=== PATIENT | female | born 1965 | race Caucasian/White ===

== ENCOUNTER 2021-04-11 14:14 | Emergency (ER) | payer MEDICAID ==
[~2021-04-11] VITALS: Ht 152.4 cm; Wt 72.6 kg
[2021-04-11 14:15] VITALS: BP_SYST 159
[2021-04-11 15:54] LABS: BASOPHILS % (AUTO) 0.6 % (0.0-2.0); EOSINOPHILS # (AUTO) 0.1 K/uL (0.0-0.4); EOSINOPHILS % (AUTO) 1.1 % (0.0-4.0); HEMATOCRIT 39.2 % (36-48); HEMOGLOBIN 12.9 g/dL (12.0-16.0); LYMPHOCYTES # (AUTO) 2.7 K/uL (1.0-5.5); LYMPHOCYTES % (AUTO) 33.3 % (20.5-51.5); MEAN CORPUSCULAR HEMOGLOBIN 28 pg (27-31); MEAN CORPUSCULAR HGB CONC 33 % (32-36); MEAN CORPUSCULAR VOLUME 85 fL (79.0-98.0); MONOCYTES # (AUTO) 0.4 K/uL (0.0-1.0); MONOCYTES % (AUTO) 5.3 % (1.7-9.3); NEUTROPHILS # (AUTO) 4.8 K/uL (1.8-7.7); NEUTROPHILS % (AUTO) 59.7 % (40.0-70.0); PLATELET COUNT (AUTO) 283 K/uL (130-430); RED BLOOD CELL COUNT(AUTO) 4.63 MIL/uL (4.2-6.2); RED CELL DISTRIBUTION WIDTH 13.4 % (9.0-15.0)
[2021-04-11 16:28] LABS: CALCIUM 9.6 mg/dL (8.4-11.0); CREATININE 1.3 mg/dL (0.55-1.30); POTASSIUM 4.5 mmol/L (3.5-5.1)
[2021-04-11 16:37] LABS: ALBUMIN 3.3 g/dL (3.4-4.8)
[2021-04-11 16:50] LABS: TOTAL BILIRUBIN 0.1 mg/dL (0.0-1.0)
[2021-04-11 16:51] LABS: INR 0.9 (0.8-1.2); PROTHROMBIN TIME 9.2 SECS (9.5-12.5)
[2021-04-11] MEDS ORDERED: NACL 0.9% 2,000 ML IV ONE (17:15)
== END 2021-04-11 20:18 | disposition left against medical advice (07) ==
LOC: SED 14:14
DX: G45.9 Transient cerebral ischemic attack, unspecified (principal); E11.65 Type 2 diabetes mellitus with hyperglycemia; Z79.899 Other long term (current) drug therapy
CPT/HCPCS: 36415; 70450; 71045; 76376; 80053; 84484; 85025; 85610; 85730; 93005; 96360; 99285; J7030

== ENCOUNTER 2023-01-12 16:26 | Inpatient (IN) | payer MEDICAID ==
[~2023-01-12] VITALS: Ht 157.5 cm; Wt 68.9 kg
[2023-01-12 16:43] VITALS: BP_SYST 164; PULSE 101; RESP 16; TEMP 98.4; O2SAT 99
[2023-01-12] MEDS ORDERED: LISI-652 PO (16:56)
[2023-01-12] MEDS ORDERED: METO50TA7 PO (16:56)
[2023-01-12] MEDS ORDERED: DONE10TA4 PO (16:56)
[2023-01-12] MEDS ORDERED: AMLO5TAB92 PO (16:56)
[2023-01-12] MEDS ORDERED: AMIN30LI31 PO (16:56)
[2023-01-12] MEDS ORDERED: ACET325C6 PO (16:56)
[2023-01-12] MEDS ORDERED: MULT15TA3 PO (16:56)
[2023-01-12] MEDS ORDERED: ASCO500C18 PO (16:56)
[2023-01-12] MEDS ORDERED: ASPI-524 PO (16:56)
[2023-01-12] MEDS ORDERED: DOCU-156 PO (16:56)
[2023-01-12] MEDS ORDERED: LACT1CAP14 PO (16:56)
[2023-01-12] MEDS ORDERED: INSU100V11 SQ (16:56)
[2023-01-12] MEDS ORDERED: TRAM50TA2 PO (16:56)
[2023-01-12] MEDS ORDERED: SULF1TAB48 PO (16:56)
[2023-01-12] MEDS ORDERED: POLY17PO44 PO (16:56)
[2023-01-12] MEDS ORDERED: INSU100V46 SQ (16:56)
[2023-01-12] MEDS ORDERED: DIPHTH,PERTUSS(ACELL),TET VAC 0.5 ML VIAL (Tdap) I.M. ONE (19:15)
[2023-01-12] MEDS ORDERED: cefTRIAXone 1 GM IVPB PREMIX 50 ML IV ONE (19:15)
[2023-01-12 20:08] LABS: BASOPHILS # (AUTO) 0.1 K/uL (0.0-0.2); BASOPHILS % (AUTO) 0.6 % (0.0-2.0); EOSINOPHILS # (AUTO) 0.1 K/uL (0.0-0.4); HEMOGLOBIN 10.5 g/dL (12.0-16.0); LYMPHOCYTES # (AUTO) 3.7 K/uL (1.0-5.5); LYMPHOCYTES % (AUTO) 27.1 % (20.5-51.5); MEAN CORPUSCULAR HEMOGLOBIN 28 pg (27-31); MEAN CORPUSCULAR HGB CONC 32 % (32-36); MEAN CORPUSCULAR VOLUME 87 fL (79.0-98.0); MONOCYTES % (AUTO) 7.6 % (1.7-9.3); NEUTROPHILS # (AUTO) 8.8 K/uL (1.8-7.7); NEUTROPHILS % (AUTO) 63.7 % (40.0-70.0); PLATELET COUNT (AUTO) 419 K/uL (130-430); RED BLOOD CELL COUNT(AUTO) 3.81 MIL/uL (4.2-6.2); RED CELL DISTRIBUTION WIDTH 15.2 % (9.0-15.0); WHITE BLOOD COUNT (AUTO) 13.8 K/uL (4.8-10.8)
[2023-01-12 20:21] LABS: CALCIUM 8.8 mg/dL (8.4-11.0); CREATININE 0.91 mg/dL (0.55-1.30); POTASSIUM 4.3 mmol/L (3.5-5.1)
[2023-01-12 20:26] LABS: INR 0.9 (0.8-1.2); PROTHROMBIN TIME 9.1 SECS (9.5-12.5)
[2023-01-13] MEDS ORDERED: cefTRIAXone 1 GM VIAL ONE (01:35)
[2023-01-13] MEDS ORDERED: NACL 0.9% 1,000 ML IV ONE (02:00)
[2023-01-13] MEDS ORDERED: VANCOMYCIN HCL 1,000 MG in NS 250 ML IV ONE (02:00)
[2023-01-13] MEDS ORDERED: PIPERACILLIN/TAZO 3.375 GM in NS 50 ML IV ONE ×2 (05:00→09:00)
[2023-01-13 06:12] LABS: BASOPHILS # (AUTO) 0.1 K/uL (0.0-0.2); BASOPHILS % (AUTO) 0.9 % (0.0-2.0); EOSINOPHILS # (AUTO) 0.1 K/uL (0.0-0.4); EOSINOPHILS % (AUTO) 0.9 % (0.0-4.0); HEMATOCRIT 30.7 % (36-48); HEMOGLOBIN 9.9 g/dL (12.0-16.0); LYMPHOCYTES # (AUTO) 3.3 K/uL (1.0-5.5); LYMPHOCYTES % (AUTO) 29.1 % (20.5-51.5); MEAN CORPUSCULAR HEMOGLOBIN 28 pg (27-31); MEAN CORPUSCULAR HGB CONC 32 % (32-36); MEAN CORPUSCULAR VOLUME 86 fL (79.0-98.0); MONOCYTES # (AUTO) 0.9 K/uL (0.0-1.0); NEUTROPHILS % (AUTO) 61.1 % (40.0-70.0); PLATELET COUNT (AUTO) 420 K/uL (130-430); RED BLOOD CELL COUNT(AUTO) 3.57 MIL/uL (4.2-6.2); RED CELL DISTRIBUTION WIDTH 14.8 % (9.0-15.0); WHITE BLOOD COUNT (AUTO) 11.4 K/uL (4.8-10.8)
[2023-01-13 06:19] LABS: CALCIUM 9.1 mg/dL (8.4-11.0); CREATININE 0.77 mg/dL (0.55-1.30); POTASSIUM 4.7 mmol/L (3.5-5.1)
[2023-01-13 06:24] LABS: ALBUMIN 2.3 g/dL (3.4-4.8); TOTAL BILIRUBIN 0.2 mg/dL (0.0-1.0); TOTAL PROTEIN, SERUM 6.4 g/dL (6.4-8.3)
[2023-01-13] MEDS ORDERED: VANCOMYCIN HCL 1000 MG/VIAL IV ONE (08:00)
[2023-01-13 09:00] VITALS: BP_SYST 149; PULSE 97; RESP 18; TEMP 97.5
[2023-01-13 10:31] VITALS: BP_SYST 149; PULSE 97; RESP 18; TEMP 97.5
[2023-01-13] MEDS ORDERED: traMADol HCL HCL 50 MG TABLET (ULTRAM) PO PRN (11:30)
[2023-01-13] MEDS ORDERED: POLYETHYLENE GLYCOL 3350, 17 GM/ POWD.PACK PO PRN (11:30)
[2023-01-13 12:00] VITALS: BP_SYST 150; PULSE 96; RESP 17; TEMP 97; O2SAT 97
[2023-01-13 16:00] VITALS: BP_SYST 151; PULSE 95; RESP 16; TEMP 97.3; O2SAT 97
[2023-01-13] MEDS: INSULIN REGULAR, HUMAN 100 UNITS/ML, 3 ML VIAL (humuLIN R) SUBCUT PRN (17:03)
[2023-01-13 20:00] VITALS: BP_SYST 146; PULSE 98; RESP 18; TEMP 88.9; O2SAT 96
[2023-01-13] MEDS: INSULIN GLARGINE 100 UNITS/ML, 10 ML VIAL SQ SCH (21:40)
[2023-01-14 00:04] VITALS: BP_SYST 144; PULSE 70; RESP 18; TEMP 98.5; O2SAT 98
[2023-01-14] MEDS: INSULIN REGULAR, HUMAN 100 UNITS/ML, 3 ML VIAL (humuLIN R) SUBCUT PRN ×3 (06:12→18:01)
[2023-01-14 06:50] LABS: BASOPHILS % (AUTO) 0.3 % (0.0-2.0); EOSINOPHILS # (AUTO) 0.2 K/uL (0.0-0.4); EOSINOPHILS % (AUTO) 1.6 % (0.0-4.0); HEMATOCRIT 31.4 % (36-48); LYMPHOCYTES # (AUTO) 3.9 K/uL (1.0-5.5); LYMPHOCYTES % (AUTO) 35.2 % (20.5-51.5); MEAN CORPUSCULAR HEMOGLOBIN 27 pg (27-31); MEAN CORPUSCULAR HGB CONC 32 % (32-36); MEAN CORPUSCULAR VOLUME 86 fL (79.0-98.0); MONOCYTES # (AUTO) 0.9 K/uL (0.0-1.0); MONOCYTES % (AUTO) 7.7 % (1.7-9.3); NEUTROPHILS # (AUTO) 6.1 K/uL (1.8-7.7); NEUTROPHILS % (AUTO) 55.2 % (40.0-70.0); PLATELET COUNT (AUTO) 452 K/uL (130-430); RED BLOOD CELL COUNT(AUTO) 3.66 MIL/uL (4.2-6.2); RED CELL DISTRIBUTION WIDTH 14.7 % (9.0-15.0); WHITE BLOOD COUNT (AUTO) 11.1 K/uL (4.8-10.8)
[2023-01-14 07:20] LABS: CALCIUM 9.2 mg/dL (8.4-11.0); CREATININE 0.79 mg/dL (0.55-1.30); POTASSIUM 4.3 mmol/L (3.5-5.1)
[2023-01-14 08:07] VITALS: BP_SYST 122; PULSE 100; RESP 18; TEMP 97.9; O2SAT 99
[2023-01-14] MEDS: DOCUSATE SODIUM 100 MG CAPSULE PO SCH (08:24)
[2023-01-14] MEDS: ASPIRIN 81 MG TAB.CHEW PO SCH (08:24)
[2023-01-14] MEDS: METOPROLOL SUCCINATE 50 MG TAB.SR.24H (TOPROL XL) PO SCH (08:24)
[2023-01-14] MEDS: lisinopriL 5 MG TABLET PO SCH (08:24)
[2023-01-14] MEDS: MULTIVITS,CA,MINERALS/IRON/FA 1 TABLET PO SCH (08:24)
[2023-01-14] MEDS: amLODIPine BESYLATE 5 MG TABLET PO SCH (08:25)
[2023-01-14] MEDS: DONEPEZIL HCL 5 MG TABLET (ARICEPT) PO SCH (08:25)
[2023-01-14] MEDS: VANCOMYCIN HCL 1,250 MG in NS 250 ML IV SCH (08:47)
[2023-01-14 09:24] VITALS: O2SAT 99
[2023-01-14 12:12] VITALS: BP_SYST 149; PULSE 88; RESP 16; TEMP 98.1; O2SAT 99
[2023-01-14 16:00] VITALS: BP_SYST 141; PULSE 90; RESP 18; TEMP 97.5; O2SAT 98
[2023-01-14 20:00] VITALS: BP_SYST 137; PULSE 90; RESP 18; TEMP 98; O2SAT 99
[2023-01-14] MEDS: INSULIN GLARGINE 100 UNITS/ML, 10 ML VIAL SQ SCH (21:11)
[2023-01-15 00:04] VITALS: BP_SYST 138; PULSE 78; RESP 18; TEMP 98.9; O2SAT 98
[2023-01-15 06:11] LABS: BASOPHILS # (AUTO) 0.1 K/uL (0.0-0.2); BASOPHILS % (AUTO) 1.1 % (0.0-2.0); EOSINOPHILS # (AUTO) 0.2 K/uL (0.0-0.4); EOSINOPHILS % (AUTO) 2.3 % (0.0-4.0); HEMOGLOBIN 10.2 g/dL (12.0-16.0); LYMPHOCYTES # (AUTO) 3.4 K/uL (1.0-5.5); LYMPHOCYTES % (AUTO) 39.4 % (20.5-51.5); MEAN CORPUSCULAR HEMOGLOBIN 28 pg (27-31); MEAN CORPUSCULAR HGB CONC 32 % (32-36); MEAN CORPUSCULAR VOLUME 87 fL (79.0-98.0); MONOCYTES # (AUTO) 0.6 K/uL (0.0-1.0); MONOCYTES % (AUTO) 6.9 % (1.7-9.3); NEUTROPHILS # (AUTO) 4.3 K/uL (1.8-7.7); NEUTROPHILS % (AUTO) 50.3 % (40.0-70.0); PLATELET COUNT (AUTO) 444 K/uL (130-430); RED CELL DISTRIBUTION WIDTH 14.3 % (9.0-15.0); WHITE BLOOD COUNT (AUTO) 8.6 K/uL (4.8-10.8)
[2023-01-15 06:17] LABS: CALCIUM 9.2 mg/dL (8.4-11.0); CREATININE 0.89 mg/dL (0.55-1.30); POTASSIUM 4.8 mmol/L (3.5-5.1)
[2023-01-15] MEDS: INSULIN REGULAR, HUMAN 100 UNITS/ML, 3 ML VIAL (humuLIN R) SUBCUT PRN ×4 (06:49→21:50)
[2023-01-15 08:45] VITALS: BP_SYST 145; PULSE 94; RESP 18; TEMP 98; O2SAT 97
[2023-01-15] MEDS: ASPIRIN 81 MG TAB.CHEW PO SCH (09:22)
[2023-01-15] MEDS: DOCUSATE SODIUM 100 MG CAPSULE PO SCH (09:23)
[2023-01-15] MEDS: amLODIPine BESYLATE 5 MG TABLET PO SCH (09:23)
[2023-01-15] MEDS: MULTIVITS,CA,MINERALS/IRON/FA 1 TABLET PO SCH (09:24)
[2023-01-15] MEDS: lisinopriL 5 MG TABLET PO SCH (09:24)
[2023-01-15] MEDS: DONEPEZIL HCL 5 MG TABLET (ARICEPT) PO SCH (09:24)
[2023-01-15] MEDS: METOPROLOL SUCCINATE 50 MG TAB.SR.24H (TOPROL XL) PO SCH (09:25)
[2023-01-15] MEDS: VANCOMYCIN HCL 1,250 MG in NS 250 ML IV SCH (09:26)
[2023-01-15 10:31] VITALS: O2SAT 97
[2023-01-15 12:10] VITALS: BP_SYST 150; PULSE 89; RESP 16; TEMP 97.7; O2SAT 99
[2023-01-15 16:00] VITALS: BP_SYST 151; PULSE 89; RESP 18; TEMP 97.7; O2SAT 98
[2023-01-15 20:30] VITALS: BP_SYST 149; PULSE 90; RESP 18; TEMP 98.2; O2SAT 99
[2023-01-15] MEDS: INSULIN GLARGINE 100 UNITS/ML, 10 ML VIAL SQ SCH (21:49)
[2023-01-16] VITALS: BP_SYST 135; PULSE 80; RESP 16; TEMP 98.8; O2SAT 98
[2023-01-16 06:19] LABS: INR 0.9 (0.8-1.2); PROTHROMBIN TIME 9.8 SECS (9.5-12.5)
[2023-01-16 07:00] VITALS: BP_SYST 140; PULSE 83; RESP 16; TEMP 98.1
[2023-01-16 09:00] VITALS: BP_SYST 140; PULSE 83; RESP 16; TEMP 98.1; O2SAT 97
[2023-01-16 09:14] LABS: BILIRUBIN,URINE NEGATIVE (NEGATIVE); BLOOD, URINE 2+ (NEGATIVE); COLOR,URINE YELLOW (YELLOW); GLUCOSE,URINE TRACE (NEGATIVE); KETONES,URINE NEGATIVE (NEGATIVE); LEUKOCYTE ESTERASE ,URINE NEGATIVE (NEGATIVE); NITRITE, URINE NEGATIVE (NEGATIVE); PROTEIN URINE 2+ (NEGATIVE); UROBILINOGEN,URINE 0.2 (0.2-1.0)
[2023-01-16 09:18] LABS: CLARITY/URINE SLIGHTLY CLOUDY (CLEAR)
[2023-01-16 10:25] LABS: BACTERIA,URINE None Seen /HPF (None Seen); WBC,URINE 0-3 /HPF (0-3)
[2023-01-16] MEDS: DONEPEZIL HCL 5 MG TABLET (ARICEPT) PO SCH (10:26)
[2023-01-16] MEDS: MULTIVITS,CA,MINERALS/IRON/FA 1 TABLET PO SCH (10:26)
[2023-01-16] MEDS: ASPIRIN 81 MG TAB.CHEW PO SCH (10:27)
[2023-01-16] MEDS: lisinopriL 5 MG TABLET PO SCH (10:27)
[2023-01-16] MEDS: DOCUSATE SODIUM 100 MG CAPSULE PO SCH (10:27)
[2023-01-16] MEDS: LINEZOLID 600 MG TABLET PO SCH ×2 (10:28→22:24)
[2023-01-16] MEDS: METOPROLOL SUCCINATE 50 MG TAB.SR.24H (TOPROL XL) PO SCH (10:28)
[2023-01-16] MEDS: amLODIPine BESYLATE 5 MG TABLET PO SCH (10:28)
[2023-01-16 11:28] VITALS: BP_SYST 149; PULSE 96; RESP 16; TEMP 97.6; O2SAT 99
[2023-01-16] MEDS: INSULIN REGULAR, HUMAN 100 UNITS/ML, 3 ML VIAL (humuLIN R) SUBCUT PRN ×3 (12:42→22:33)
[2023-01-16 15:22] VITALS: BP_SYST 141; PULSE 82; RESP 15; TEMP 97.7; O2SAT 93
[2023-01-16] MEDS ORDERED: BALSAM PERU/CASTOR OIL 56.7 GM OINT...G. TP ONE (18:00)
[2023-01-16 20:00] VITALS: BP_SYST 145; PULSE 80; RESP 18; TEMP 98.2; O2SAT 98
[2023-01-16] MEDS: INSULIN GLARGINE 100 UNITS/ML, 10 ML VIAL SQ SCH (22:31)
[2023-01-17] VITALS (12 sets, daily range): BP systolic 128–160; PULSE 71–102; RESP 16–18; TEMP 96.9–98.3; O2SAT 96–100
[2023-01-17 06:03] LABS: BASOPHILS # (AUTO) 0.1 K/uL (0.0-0.2); BASOPHILS % (AUTO) 0.8 % (0.0-2.0); EOSINOPHILS # (AUTO) 0.2 K/uL (0.0-0.4); EOSINOPHILS % (AUTO) 2.9 % (0.0-4.0); HEMATOCRIT 33.8 % (36-48); HEMOGLOBIN 10.9 g/dL (12.0-16.0); LYMPHOCYTES # (AUTO) 2.8 K/uL (1.0-5.5); LYMPHOCYTES % (AUTO) 36.9 % (20.5-51.5); MEAN CORPUSCULAR HEMOGLOBIN 28 pg (27-31); MEAN CORPUSCULAR HGB CONC 32 % (32-36); MEAN CORPUSCULAR VOLUME 85 fL (79.0-98.0); MONOCYTES # (AUTO) 0.6 K/uL (0.0-1.0); MONOCYTES % (AUTO) 7.8 % (1.7-9.3); NEUTROPHILS # (AUTO) 3.9 K/uL (1.8-7.7); NEUTROPHILS % (AUTO) 51.6 % (40.0-70.0); PLATELET COUNT (AUTO) 537 K/uL (130-430); RED BLOOD CELL COUNT(AUTO) 3.97 MIL/uL (4.2-6.2); RED CELL DISTRIBUTION WIDTH 14.4 % (9.0-15.0); WHITE BLOOD COUNT (AUTO) 7.5 K/uL (4.8-10.8)
[2023-01-17 06:33] LABS: CALCIUM 9.3 mg/dL (8.4-11.0); CREATININE 0.79 mg/dL (0.55-1.30); POTASSIUM 3.7 mmol/L (3.5-5.1)
[2023-01-17] MEDS ORDERED: BALSAM PERU/CASTOR OIL 56.7 GM OINT...G. TP SCH (09:00)
[2023-01-17] MEDS: METOPROLOL SUCCINATE 50 MG TAB.SR.24H (TOPROL XL) PO SCH (09:15)
[2023-01-17] MEDS: LINEZOLID 600 MG TABLET PO SCH ×2 (09:15→20:34)
[2023-01-17] MEDS: ASPIRIN 81 MG TAB.CHEW PO SCH (09:15)
[2023-01-17] MEDS: MULTIVITS,CA,MINERALS/IRON/FA 1 TABLET PO SCH (09:15)
[2023-01-17] MEDS: DOCUSATE SODIUM 100 MG CAPSULE PO SCH (09:15)
[2023-01-17] MEDS: amLODIPine BESYLATE 5 MG TABLET PO SCH (09:16)
[2023-01-17] MEDS: DONEPEZIL HCL 5 MG TABLET (ARICEPT) PO SCH (09:16)
[2023-01-17] MEDS: lisinopriL 5 MG TABLET PO SCH (09:16)
[2023-01-17] MEDS ORDERED: HYDROmorphone 2 MG/ML VIAL ONE (12:08)
[2023-01-17] MEDS ORDERED: MIDAZOLAM HCL 2 MG/2 ML VIAL (VERSED) ONE (12:09)
[2023-01-17] MEDS ORDERED: METOCLOPRAMIDE HCL 10 MG/2 ML VIAL ONE (13:30)
[2023-01-17] MEDS ORDERED: SUCCINYLCHOLINE CHLORIDE 20 MG/ML(QUELICIN) ONE (13:30)
[2023-01-17] MEDS ORDERED: HYDROmorphone 1 MG/ML INJ. CARTRIDGE IVP PRN (13:30)
[2023-01-17] MEDS ORDERED: BUPIVACAINE /PF 0.5% 30 ML VIAL ONE (13:30)
[2023-01-17] MEDS ORDERED: NS IRRIG SOLN 1000 ML IR ONE (13:30)
[2023-01-17] MEDS ORDERED: ONDANSETRON HCL 4 MG/2 ML VIAL ONE (13:30)
[2023-01-17] MEDS ORDERED: LR 1,000 ML IV.SOLN IV ONE (13:30)
[2023-01-17] MEDS ORDERED: ePHEDrine sulfate 50 MG/ML VIAL ONE (13:30)
[2023-01-17] MEDS ORDERED: PROPOFOL 200MG/ 20ML VIAL (DIPRIVAN) IV ONE (13:30)
[2023-01-17] MEDS ORDERED: SEVOFLURANE 15 MIN GAS INH ONE (13:30)
[2023-01-17] MEDS ORDERED: NALOXONE HCL 0.4 MG/ML AMP (NARCAN) IVP PRN (13:30)
[2023-01-17] MEDS ORDERED: ONDANSETRON HCL 4 MG/2 ML VIAL IVP PRN (13:30)
[2023-01-17] MEDS: INSULIN GLARGINE 100 UNITS/ML, 10 ML VIAL SQ SCH (20:34)
[2023-01-17] MEDS: INSULIN REGULAR, HUMAN 100 UNITS/ML, 3 ML VIAL (humuLIN R) SUBCUT PRN (20:36)
[2023-01-18] VITALS (7 sets, daily range): BP systolic 125–150; PULSE 88–106; RESP 16–20; TEMP 97.2–98.6; O2SAT 96–100
[2023-01-18] MEDS: ASPIRIN 81 MG TAB.CHEW PO SCH (11:07)
[2023-01-18] MEDS: MULTIVITS,CA,MINERALS/IRON/FA 1 TABLET PO SCH (11:07)
[2023-01-18] MEDS: DOCUSATE SODIUM 100 MG CAPSULE PO SCH (11:07)
[2023-01-18] MEDS: LINEZOLID 600 MG TABLET PO SCH ×2 (11:07→20:41)
[2023-01-18] MEDS: lisinopriL 5 MG TABLET PO SCH (11:07)
[2023-01-18] MEDS: DONEPEZIL HCL 5 MG TABLET (ARICEPT) PO SCH (11:07)
[2023-01-18] MEDS: amLODIPine BESYLATE 5 MG TABLET PO SCH (11:08)
[2023-01-18] MEDS: METOPROLOL SUCCINATE 50 MG TAB.SR.24H (TOPROL XL) PO SCH (11:08)
[2023-01-18] MEDS: INSULIN REGULAR, HUMAN 100 UNITS/ML, 3 ML VIAL (humuLIN R) SUBCUT PRN (16:59)
[2023-01-18] MEDS: INSULIN GLARGINE 100 UNITS/ML, 10 ML VIAL SQ SCH (20:41)
[2023-01-19 00:09] VITALS: BP_SYST 149; PULSE 100; RESP 18; TEMP 97.9; O2SAT 100
[2023-01-19 08:00] VITALS: BP_SYST 126; PULSE 98; RESP 18; TEMP 97.5; O2SAT 99
[2023-01-19 08:27] VITALS: BP_SYST 126; PULSE 98; RESP 18; TEMP 97.5; O2SAT 99
[2023-01-19] MEDS: LINEZOLID 600 MG TABLET PO SCH ×2 (08:49→21:17)
[2023-01-19] MEDS: MULTIVITS,CA,MINERALS/IRON/FA 1 TABLET PO SCH (08:49)
[2023-01-19] MEDS: ASPIRIN 81 MG TAB.CHEW PO SCH (08:49)
[2023-01-19] MEDS: DOCUSATE SODIUM 100 MG CAPSULE PO SCH (08:49)
[2023-01-19] MEDS: lisinopriL 5 MG TABLET PO SCH (08:50)
[2023-01-19] MEDS: DONEPEZIL HCL 5 MG TABLET (ARICEPT) PO SCH (08:51)
[2023-01-19] MEDS: amLODIPine BESYLATE 5 MG TABLET PO SCH (08:51)
[2023-01-19] MEDS: METOPROLOL SUCCINATE 50 MG TAB.SR.24H (TOPROL XL) PO SCH (09:00)
[2023-01-19 11:26] VITALS: BP_SYST 144; PULSE 87; RESP 16; TEMP 97; O2SAT 100
[2023-01-19 15:12] VITALS: BP_SYST 130; PULSE 88; RESP 16; TEMP 97.8; O2SAT 93
[2023-01-19] MEDS: INSULIN REGULAR, HUMAN 100 UNITS/ML, 3 ML VIAL (humuLIN R) SUBCUT PRN ×2 (18:02→21:25)
[2023-01-19 20:00] VITALS: BP_SYST 154; PULSE 90; RESP 18; TEMP 98.1; O2SAT 100
[2023-01-19] MEDS: INSULIN GLARGINE 100 UNITS/ML, 10 ML VIAL SQ SCH (21:19)
[2023-01-20 00:15] VITALS: BP_SYST 130; PULSE 88; RESP 15; TEMP 97.9; O2SAT 94
[2023-01-20 08:00] VITALS: BP_SYST 161; PULSE 89; RESP 17; TEMP 98.6; O2SAT 98; O2SAT 99
[2023-01-20] MEDS: DOCUSATE SODIUM 100 MG CAPSULE PO SCH (09:00)
[2023-01-20] MEDS: LINEZOLID 600 MG TABLET PO SCH (10:48)
[2023-01-20] MEDS: METOPROLOL SUCCINATE 50 MG TAB.SR.24H (TOPROL XL) PO SCH (10:48)
[2023-01-20] MEDS: ASPIRIN 81 MG TAB.CHEW PO SCH (10:49)
[2023-01-20] MEDS: amLODIPine BESYLATE 5 MG TABLET PO SCH (10:49)
[2023-01-20] MEDS: DONEPEZIL HCL 5 MG TABLET (ARICEPT) PO SCH (10:49)
[2023-01-20] MEDS: MULTIVITS,CA,MINERALS/IRON/FA 1 TABLET PO SCH (10:50)
[2023-01-20] MEDS: lisinopriL 5 MG TABLET PO SCH (10:50)
[2023-01-20] MEDS: INSULIN REGULAR, HUMAN 100 UNITS/ML, 3 ML VIAL (humuLIN R) SUBCUT PRN ×2 (11:24→17:52)
[2023-01-20 12:00] VITALS: BP_SYST 149; PULSE 94; RESP 16; TEMP 97.3; O2SAT 99
[2023-01-20 16:00] VITALS: BP_SYST 154; PULSE 72; RESP 16; TEMP 98.1; O2SAT 98
[2023-01-20 20:00] VITALS: BP_SYST 140; PULSE 88; RESP 16; TEMP 98.2; O2SAT 99
[2023-01-20] MEDS: INSULIN GLARGINE 100 UNITS/ML, 10 ML VIAL SQ SCH (21:21)
[2023-01-20] MEDS: SULFAMETHOXAZOLE/TRIMETHOPR DS 1 TABLET PO SCH (22:49)
[2023-01-20 23:18] VITALS: O2SAT 100
[2023-01-21] VITALS (7 sets, daily range): BP systolic 112–156; PULSE 85–102; RESP 16–18; TEMP 96–98.3; O2SAT 96–100
[2023-01-21] MEDS: MULTIVITS,CA,MINERALS/IRON/FA 1 TABLET PO SCH (10:37)
[2023-01-21] MEDS: DONEPEZIL HCL 5 MG TABLET (ARICEPT) PO SCH (10:37)
[2023-01-21] MEDS: SULFAMETHOXAZOLE/TRIMETHOPR DS 1 TABLET PO SCH ×2 (10:38→21:02)
[2023-01-21] MEDS: METOPROLOL SUCCINATE 50 MG TAB.SR.24H (TOPROL XL) PO SCH ×3 (10:38→13:23)
[2023-01-21] MEDS: ASPIRIN 81 MG TAB.CHEW PO SCH (10:38)
[2023-01-21] MEDS: DOCUSATE SODIUM 100 MG CAPSULE PO SCH (10:38)
[2023-01-21] MEDS: amLODIPine BESYLATE 5 MG TABLET PO SCH ×3 (10:39→13:23)
[2023-01-21] MEDS: lisinopriL 5 MG TABLET PO SCH ×3 (10:39→13:23)
[2023-01-21] MEDS: INSULIN REGULAR, HUMAN 100 UNITS/ML, 3 ML VIAL (humuLIN R) SUBCUT PRN (12:21)
[2023-01-21] MEDS: INSULIN GLARGINE 100 UNITS/ML, 10 ML VIAL SQ SCH (21:08)
[2023-01-22] VITALS: BP_SYST 158; PULSE 94; RESP 20; TEMP 97.2; O2SAT 93
[2023-01-22] MEDS: INSULIN REGULAR, HUMAN 100 UNITS/ML, 3 ML VIAL (humuLIN R) SUBCUT PRN ×3 (05:43→17:41)
[2023-01-22 08:00] VITALS: BP_SYST 151; PULSE 100; RESP 18; TEMP 97.2; O2SAT 97; O2SAT 98
[2023-01-22] MEDS: ASPIRIN 81 MG TAB.CHEW PO SCH (09:20)
[2023-01-22] MEDS: DONEPEZIL HCL 5 MG TABLET (ARICEPT) PO SCH (09:21)
[2023-01-22] MEDS ORDERED: amLODIPine BESYLATE 5 MG TABLET PO ONE (09:45)
[2023-01-22] MEDS ORDERED: lisinopriL 5 MG TABLET PO ONE (09:45)
[2023-01-22] MEDS ORDERED: METOPROLOL SUCCINATE 50 MG TAB.SR.24H (TOPROL XL) PO ONE (09:45)
[2023-01-22] MEDS: DOCUSATE SODIUM 100 MG CAPSULE PO SCH (10:22)
[2023-01-22] MEDS: MULTIVITS,CA,MINERALS/IRON/FA 1 TABLET PO SCH (10:23)
[2023-01-22 17:52] VITALS: BP_SYST 142; PULSE 98; RESP 18; TEMP 98.2; O2SAT 97
== END 2023-01-22 18:42 | DRG 720 ==
LOC: SED 16:26 → SMU 01-13 04:53
PROVIDERS: ADMIT Internal Medicine; ATTEND Internal Medicine
PROC: 05HY33Z Insertion of Infusion Device into Upper Vein, Percutaneous Approach (ICD-10-PCS; 2023-01-17)
PROC: B54MZZA Ultrasonography of Right Upper Extremity Veins, Guidance (ICD-10-PCS; 2023-01-17)
PROC: 0JB80ZZ Excision of Abdomen Subcutaneous Tissue and Fascia, Open Approach (ICD-10-PCS; principal; 2023-01-17 12:25)
DX: A41.9 Sepsis, unspecified organism (principal); E43 Unspecified severe protein-calorie malnutrition; E11.52 Type 2 diabetes mellitus with diabetic peripheral angiopathy with gangrene; L02.211 Cutaneous abscess of abdominal wall; L03.311 Cellulitis of abdominal wall; B95.61 Methicillin susceptible Staphylococcus aureus infection as the cause of diseases classified elsewhere; I10 Essential (primary) hypertension; S31.109A Unspecified open wound of abdominal wall, unspecified quadrant without penetration into peritoneal cavity, initial encounter; X58.XXXA Exposure to other specified factors, initial encounter; E66.9 Obesity, unspecified; Z79.82 Long term (current) use of aspirin; Z79.899 Other long term (current) drug therapy; Z79.4 Long term (current) use of insulin; Z86.73 Personal history of transient ischemic attack (TIA), and cerebral infarction without residual deficits; Y93.89 Activity, other specified; Y92.89 Other specified places as the place of occurrence of the external cause; Y99.8 Other external cause status; Z68.27 Body mass index [BMI] 27.0-27.9, adult
CPT/HCPCS: 36415; 71045; 76376; 80048; 80053; 81000; 81001; 81015; 82962; 83605; 85025; 85610-TC; 85730-TC; 87040; 87070; 87070-TC; 87075-TC; 87081; 87186-TC; 88304; 93005; 96365; 96375; 99285; J0330; J0696; J1170; J1815; J2405; J2543; J2704; J2765; J3370; J3465; J3490; J7050; J7120; Q9967

== ENCOUNTER 2023-08-19 13:25 | Inpatient (IN) | payer MEDICAID ==
[~2023-08-19] VITALS: Ht 152.4 cm; Wt 60.6 kg
[~2023-08-19 13:25] MED LIST: ACET325C6 PO; AMIN30LI31 PO; AMLO5TAB92 PO; ASCO500C18 PO; ASPI-524 PO; DOCU-156 PO; DONE10TA4 PO; INSU100V11 SQ; INSU100V46 SQ; LACT1CAP14 PO; LISI-652 PO; METO50TA7 PO; MULT15TA3 PO; POLY17PO44 PO; SULF1TAB48 PO; TRAM50TA2 PO
[2023-08-19 13:34] VITALS: BP_SYST 140; PULSE 88; RESP 17; TEMP 97.5; O2SAT 99
[2023-08-19 14:51] LABS: BASOPHILS % (AUTO) 0.3 % (0.0-2.0); EOSINOPHILS # (AUTO) 0.1 K/uL (0.0-0.4); EOSINOPHILS % (AUTO) 0.7 % (0.0-4.0); HEMATOCRIT 41.2 % (36-48); HEMOGLOBIN 14.1 g/dL (12.0-16.0); LYMPHOCYTES # (AUTO) 3.4 K/uL (1.0-5.5); LYMPHOCYTES % (AUTO) 38.2 % (20.5-51.5); MEAN CORPUSCULAR HEMOGLOBIN 29 pg (27-31); MEAN CORPUSCULAR HGB CONC 34 % (32-36); MEAN CORPUSCULAR VOLUME 84 fL (79.0-98.0); MONOCYTES # (AUTO) 0.4 K/uL (0.0-1.0); MONOCYTES % (AUTO) 4.5 % (1.7-9.3); NEUTROPHILS % (AUTO) 56.3 % (40.0-70.0); PLATELET COUNT (AUTO) 317 K/uL (130-430); RED BLOOD CELL COUNT(AUTO) 4.89 MIL/uL (4.2-6.2); RED CELL DISTRIBUTION WIDTH 14.1 % (9.0-15.0); WHITE BLOOD COUNT (AUTO) 8.8 K/uL (4.8-10.8)
[2023-08-19 14:54] LABS: BILIRUBIN,URINE NEGATIVE (NEGATIVE); BLOOD, URINE NEGATIVE (NEGATIVE); CLARITY/URINE CLEAR (CLEAR); COLOR,URINE YELLOW (YELLOW); GLUCOSE,URINE 3+ (NEGATIVE); KETONES,URINE NEGATIVE (NEGATIVE); LEUKOCYTE ESTERASE ,URINE NEGATIVE (NEGATIVE); NITRITE, URINE NEGATIVE (NEGATIVE); PH,URINE 5.5 (5.0-8.0); PROTEIN URINE 1+ (NEGATIVE); UROBILINOGEN,URINE 0.2 (0.2-1.0)
[2023-08-19 15:06] LABS: BARBITURATE, URINE NEGATIVE (NEG <=200); BENZODIAZEPINE, URINE NEGATIVE (NEG <=150); CANNABINOID, URINE NEGATIVE (NEG <=50); COCAINE, URINE NEGATIVE (NEG <=150); METHAMPHETAMINES SCREEN,URINE NEGATIVE (NEG <=500); OPIATE, URINE NEGATIVE (NEG <=100); PHENCYCLIDINE SCREEN,URINE NEGATIVE (NEG <=25); UR TRICYCLIC ANTIDEPRESSANTS NEGATIVE (NEG <=300); URINE AMPHETAMINE NEGATIVE (NEG <=500); URINE METHADONE NEGATIVE (NEG <=200); URINE OXYCODONE SCREEN NEGATIVE (NEG <=100)
[2023-08-19 15:11] LABS: INR 0.9 (0.8-1.2); PROTHROMBIN TIME 9.6 SECS (9.5-12.5)
[2023-08-19 15:13] LABS: BACTERIA,URINE RARE /HPF (None Seen); MUCUS,URINE None Seen /LPF (None Seen); RBC,URINE NONE SEEN /HPF (0-3); WBC,URINE 0-3 /HPF (0-3)
[2023-08-19 15:27] LABS: ANION GAP 11 (5-15); CALCIUM 9.3 mg/dL (8.4-11.0); CARBON DIOXIDE 24 mmol/L (23-29); CHLORIDE 107 mmol/L (98-107); CREATININE 1.09 mg/dL (0.55-1.30); GFR AFRICAN AMERICAN 66 mL/min (>90); GLUCOSE 256 mg/dL (74-106); POTASSIUM 4.1 mmol/L (3.5-5.1); SODIUM SERUM 142 mmol/L (136-145); UREA NITROGEN, BLOOD 25 mg/dL (8-21)
[2023-08-19 15:29] LABS: ALCOHOL, BLOOD < 3 mg/dL (<10); GFR NON AFRICAN-AMERICAN 55 mL/min (>90)
[2023-08-19] MEDS: NACL 0.9% 1,000 ML IV ONE ×2 (15:34→17:10)
[2023-08-19 16:33] LABS: INFLUENZA TYPE A Negative (NEGATIVE); INFLUENZA TYPE B NEGATIVE (NEGATIVE)
[2023-08-19 17:21] LABS: FREE T4 (FREE THYROXINE) 0.9 ng/dL (0.6-1.6); THYROID STIMULATING HORMONE 0.15 uIu/mL (0.34-4.82)
[2023-08-19] MEDS: D5/0.45 NS 1,000 ML IV SCH (20:01)
[2023-08-19 20:30] VITALS: BP_SYST 84; PULSE 87; RESP 16; TEMP 98.3
[2023-08-19] MEDS ORDERED: DEXTROSE 50% JECT 50 ML DISP.SYRIN IVP PRN (23:00)
[2023-08-19] MEDS ORDERED: GLUCOSE (DEXTROSE) ORAL GEL -Adults PO PRN (23:00)
[2023-08-19] MEDS ORDERED: D5W 1,000 ML IV PRN (23:00)
[2023-08-19 23:09] VITALS: O2SAT 98
[2023-08-19] MEDS: MECLIZINE HCL 25 MG TABLET (ANITVERT) PO SCH (23:39)
[2023-08-19] MEDS: METOPROLOL SUCCINATE 50 MG TAB.SR.24H (TOPROL XL) PO SCH (23:40)
[2023-08-20] VITALS: BP_SYST 166; PULSE 82; RESP 18; TEMP 97.4; O2SAT 98
[2023-08-20] MEDS: INSULIN REGULAR, HUMAN 100 UNITS/ML, 3 ML VIAL (humuLIN R) SUBCUT PRN ×2 (06:28→11:43)
[2023-08-20 08:00] VITALS: BP_SYST 110; PULSE 71; RESP 18; TEMP 97.5
[2023-08-20 09:15] VITALS: O2SAT 100
[2023-08-20] MEDS ORDERED: LORazepam 2 MG/ML VIAL IVP PRN (09:15)
[2023-08-20] MEDS: NACL 0.9% 1,000 ML IV SCH (09:15)
[2023-08-20] MEDS ORDERED: [UNRECOGNIZED DRUG - OTHER] PO SCH (09:15)
[2023-08-20] MEDS ORDERED: ONDANSETRON HCL 4 MG/2 ML VIAL IVP PRN (09:15)
[2023-08-20] MEDS ORDERED: FERROUS FUMARATE PO SCH (09:15)
[2023-08-20] MEDS ORDERED: POLYETHYLENE GLYCOL 3350, 17 GM/ POWD.PACK PO PRN (09:15)
[2023-08-20] MEDS ORDERED: LACTOBACILLUS ACIDOPHILUS PO SCH (09:15)
[2023-08-20] MEDS ORDERED: ACETAMINOPHEN 325 MG TABLET PO PRN (09:15)
[2023-08-20] MEDS ORDERED: traMADol HCL HCL 50 MG TABLET (ULTRAM) PO PRN (09:15)
[2023-08-20] MEDS ORDERED: NON-FORMULARY MEDICATION (Acetaminophen (Tylenol) 2 CAP) PO SCH (09:15)
[2023-08-20] MEDS ORDERED: NON-FORMULARY MEDICATION (Amino Acids/Protein Hydrolys (Pro-Stat Max Liquid Packet) 30 ML) PO SCH (09:15)
[2023-08-20] MEDS ORDERED: MULTIVIT MIN PO SCH (09:15)
[2023-08-20 09:51] LABS: BASOPHILS # (AUTO) 0.1 K/uL (0.0-0.2); BASOPHILS % (AUTO) 0.7 % (0.0-2.0); EOSINOPHILS # (AUTO) 0.1 K/uL (0.0-0.4); EOSINOPHILS % (AUTO) 1.6 % (0.0-4.0); HEMATOCRIT 42.6 % (36-48); HEMOGLOBIN 14.2 g/dL (12.0-16.0); LYMPHOCYTES # (AUTO) 3.7 K/uL (1.0-5.5); LYMPHOCYTES % (AUTO) 46.7 % (20.5-51.5); MEAN CORPUSCULAR HEMOGLOBIN 29 pg (27-31); MEAN CORPUSCULAR HGB CONC 33 % (32-36); MEAN CORPUSCULAR VOLUME 85 fL (79.0-98.0); MONOCYTES # (AUTO) 0.4 K/uL (0.0-1.0); MONOCYTES % (AUTO) 5.6 % (1.7-9.3); NEUTROPHILS # (AUTO) 3.6 K/uL (1.8-7.7); NEUTROPHILS % (AUTO) 45.4 % (40.0-70.0); PLATELET COUNT (AUTO) 288 K/uL (130-430); RED CELL DISTRIBUTION WIDTH 13.9 % (9.0-15.0); WHITE BLOOD COUNT (AUTO) 7.9 K/uL (4.8-10.8)
[2023-08-20] MEDS: amLODIPine BESYLATE 5 MG TABLET PO ONE (10:21)
[2023-08-20] MEDS: METOPROLOL SUCCINATE 50 MG TAB.SR.24H (TOPROL XL) PO ONE (10:21)
[2023-08-20] MEDS: MECLIZINE HCL 25 MG TABLET (ANITVERT) PO SCH (10:21)
[2023-08-20] MEDS: ASPIRIN 81 MG TAB.CHEW PO ONE (10:27)
[2023-08-20 10:33] LABS: ALBUMIN 2.7 g/dL (3.4-4.8); CALCIUM 8.3 mg/dL (8.4-11.0); CREATININE 0.94 mg/dL (0.55-1.30); POTASSIUM 3.6 mmol/L (3.5-5.1); TOTAL BILIRUBIN 0.3 mg/dL (0.0-1.0); TOTAL PROTEIN, SERUM 6.5 g/dL (6.4-8.3)
[2023-08-20 15:14] VITALS: BP_SYST 120; PULSE 76; RESP 19; TEMP 98.3; O2SAT 99
[2023-08-20 16:02] VITALS: BP_SYST 144; PULSE 77; RESP 18; TEMP 98.6; O2SAT 98
[2023-08-20 20:00] VITALS: BP_SYST 132; PULSE 78; RESP 20; TEMP 97; O2SAT 98
[2023-08-20] MEDS ORDERED: NON-FORMULARY MEDICATION (Ascorbic Acid (Vitamin C) 1 CAP) PO SCH (21:00)
[2023-08-20] MEDS: INSULIN GLARGINE 100 UNITS/ML, 10 ML VIAL SUBCUT SCH (22:39)
[2023-08-20] MEDS: lisinopriL 5 MG TABLET PO SCH (22:45)
[2023-08-21 02:31] VITALS: RESP 20; TEMP 97; O2SAT 98
[2023-08-21 05:52] LABS: BASOPHILS % (AUTO) 0.4 % (0.0-2.0); EOSINOPHILS # (AUTO) 0.1 K/uL (0.0-0.4); EOSINOPHILS % (AUTO) 1.3 % (0.0-4.0); HEMATOCRIT 41.6 % (36-48); HEMOGLOBIN 14.1 g/dL (12.0-16.0); LYMPHOCYTES # (AUTO) 4.2 K/uL (1.0-5.5); MEAN CORPUSCULAR HEMOGLOBIN 29 pg (27-31); MEAN CORPUSCULAR HGB CONC 34 % (32-36); MEAN CORPUSCULAR VOLUME 85 fL (79.0-98.0); MONOCYTES # (AUTO) 0.5 K/uL (0.0-1.0); MONOCYTES % (AUTO) 5.7 % (1.7-9.3); NEUTROPHILS # (AUTO) 3.6 K/uL (1.8-7.7); NEUTROPHILS % (AUTO) 42.6 % (40.0-70.0); PLATELET COUNT (AUTO) 298 K/uL (130-430); RED BLOOD CELL COUNT(AUTO) 4.87 MIL/uL (4.2-6.2); RED CELL DISTRIBUTION WIDTH 13.8 % (9.0-15.0); WHITE BLOOD COUNT (AUTO) 8.4 K/uL (4.8-10.8)
[2023-08-21 06:06] LABS: CALCIUM 8.7 mg/dL (8.4-11.0); CREATININE 0.79 mg/dL (0.55-1.30); POTASSIUM 3.6 mmol/L (3.5-5.1)
[2023-08-21 08:42] VITALS: BP_SYST 124; PULSE 77; RESP 14; TEMP 97.5; O2SAT 100
[2023-08-21] MEDS: ASPIRIN 81 MG TAB.CHEW PO SCH (10:12)
[2023-08-21] MEDS: amLODIPine BESYLATE 5 MG TABLET PO SCH (10:13)
[2023-08-21] MEDS: METOPROLOL SUCCINATE 50 MG TAB.SR.24H (TOPROL XL) PO SCH (10:13)
[2023-08-21] MEDS: DONEPEZIL HCL 5 MG TABLET (ARICEPT) PO SCH (10:14)
[2023-08-21] MEDS: DOCUSATE SODIUM 100 MG CAPSULE PO SCH (10:14)
[2023-08-21 10:30] VITALS: O2SAT 98
[2023-08-21 11:04] VITALS: BP_SYST 103; PULSE 78; RESP 16; TEMP 97; O2SAT 96
[2023-08-21] MEDS: NORMAL SALINE 5 ML DISP.SYRIN IVF SCH (14:00)
[2023-08-21 16:05] VITALS: BP_SYST 105; PULSE 78; RESP 16; TEMP 97.6; O2SAT 96
[2023-08-21 20:00] VITALS: BP_SYST 147; PULSE 77; RESP 18; TEMP 97.7; TEMP 98.1; O2SAT 98
[2023-08-22] VITALS: BP_SYST 131; PULSE 74; RESP 18; TEMP 97.6; O2SAT 98
[2023-08-22 05:18] LABS: BASOPHILS % (AUTO) 0.2 % (0.0-2.0); EOSINOPHILS # (AUTO) 0.2 K/uL (0.0-0.4); EOSINOPHILS % (AUTO) 1.7 % (0.0-4.0); HEMATOCRIT 40.8 % (36-48); HEMOGLOBIN 13.6 g/dL (12.0-16.0); LYMPHOCYTES # (AUTO) 5.2 K/uL (1.0-5.5); LYMPHOCYTES % (AUTO) 54.2 % (20.5-51.5); MEAN CORPUSCULAR HEMOGLOBIN 29 pg (27-31); MEAN CORPUSCULAR HGB CONC 33 % (32-36); MEAN CORPUSCULAR VOLUME 85 fL (79.0-98.0); MONOCYTES # (AUTO) 0.5 K/uL (0.0-1.0); MONOCYTES % (AUTO) 5.2 % (1.7-9.3); NEUTROPHILS # (AUTO) 3.7 K/uL (1.8-7.7); NEUTROPHILS % (AUTO) 38.7 % (40.0-70.0); PLATELET COUNT (AUTO) 293 K/uL (130-430); RED BLOOD CELL COUNT(AUTO) 4.78 MIL/uL (4.2-6.2); RED CELL DISTRIBUTION WIDTH 13.9 % (9.0-15.0); WHITE BLOOD COUNT (AUTO) 9.6 K/uL (4.8-10.8)
[2023-08-22 06:15] LABS: ALBUMIN 2.6 g/dL (3.4-4.8); CALCIUM 8.6 mg/dL (8.4-11.0); CREATININE 0.77 mg/dL (0.55-1.30); POTASSIUM 3.6 mmol/L (3.5-5.1); TOTAL BILIRUBIN 0.2 mg/dL (0.0-1.0); TOTAL PROTEIN, SERUM 6.3 g/dL (6.4-8.3)
[2023-08-22 08:10] VITALS: O2SAT 99
[2023-08-22 08:39] VITALS: BP_SYST 115; PULSE 69; RESP 18; TEMP 97.5; O2SAT 99
[2023-08-22 12:42] VITALS: BP_SYST 136; PULSE 76; RESP 18; TEMP 97.6; O2SAT 100
[2023-08-22 15:24] VITALS: BP_SYST 139; PULSE 70; RESP 17; TEMP 98.1; O2SAT 95
[2023-08-22 18:32] VITALS: BP_SYST 139; PULSE 70; RESP 17; TEMP 98.1; O2SAT 95
== END 2023-08-22 17:40 | disposition home health service (06) | DRG 422 ==
LOC: SED 13:25 → SMU 17:46
PROVIDERS: ADMIT Preventive Medicine Preventive Medicine/Occupational Environmental Medicine; ATTEND Preventive Medicine Preventive Medicine/Occupational Environmental Medicine
DX: E86.0 Dehydration (principal); R65.11 Systemic inflammatory response syndrome (SIRS) of non-infectious origin with acute organ dysfunction; E43 Unspecified severe protein-calorie malnutrition; G93.41 Metabolic encephalopathy; F03.90 Unspecified dementia, unspecified severity, without behavioral disturbance, psychotic disturbance, mood disturbance, and anxiety; E11.65 Type 2 diabetes mellitus with hyperglycemia; E87.1 Hypo-osmolality and hyponatremia; E88.09 Other disorders of plasma-protein metabolism, not elsewhere classified; Z20.822 Contact with and (suspected) exposure to COVID-19; I10 Essential (primary) hypertension; Z86.73 Personal history of transient ischemic attack (TIA), and cerebral infarction without residual deficits; Z79.899 Other long term (current) drug therapy; R53.81 Other malaise; Z68.26 Body mass index [BMI] 26.0-26.9, adult
CPT/HCPCS: 36415; 70450-TC; 71045; 80048; 80053; 80307; 81000; 81001; 81015; 82948; 83605; 84439; 84443; 84484; 85025; 85610; 85730; 87040; 87086; 93005; 95816; 96360; 96361; 97110-GP; 97116-GP; 97530-GP; 99285; G0482; J1815; J8597